=== PATIENT | male | born 1945 | race Caucasian/White ===

== ENCOUNTER 2018-07-14 13:21 | Outpatient (CLI) | payer MEDICARE, OTHER, SELFPAY ==
[2018-07-14 13:55] LABS: Abs Immature Grans 0.02 k/cumm (0.0-0.09); Absolute Basophil Count 0.02 k/cumm (0.0-0.2); Absolute Lymphocyte Count 2.05 k/cumm (1.2-3.4); Absolute Monocyte Count 0.75 k/cumm (0.11-0.7); Absolute Neutrophil Count 3.93 k/cumm (1.2-6.7); Basophils % 0.3; Eosinophils % 1.5; HCT 42.1 % (40.0-50.0); HGB 14.2 g/dL (13.5-17.5); Immature Grans % 0.3; Lymphocytes % 29.8; Mean Corp. HGB Concentration 33.7 g/dL (32.0-36.0); Mean Corpuscular Hemoglobin 32.1 pg (27.0-33.0); Mean Platelet Volume 9.7 fL (8.0-11.0); Monocytes % 10.9; Neutrophils % 57.2; Platelet Count 136 x1000/uL (130-400); RBC 4.43 m/cumm (4.50-6.00); RBC Distribution Width 14.6 % (11.8-14.1); White Blood Cell Count 6.87 k/cumm (4.4-10.8)
[2018-07-14 14:07] LABS: ALT 20 U/L (12-78); AST 18 U/L (15-37); Albumin 3.9 g/dL (3.4-5.0); Alkaline Phosphatase 118 U/L (46-116); Anion Gap 7.4 mmol/L (3-11); BUN 10 mg/dL (7-18); Bilirubin, Total 0.7 mg/dL (0.2-1.0); CO2 28.6 mmol/L (21.0-32.0); CREATININE 1.05 mg/dL (0.70-1.30); Calcium 8.8 mg/dL (8.5-10.1); Chloride 103 mmol/L (98-107); Glucose 108 mg/dL (70-100); Potassium 3.8 mmol/L (3.5-5.1); Sodium 139 mmol/L (136-145); Total Protein 7.9 g/dL (6.4-8.2)
== END 2018-07-14 13:41 ==
PROVIDERS: PCP Family Medicine; Visit Provider Nurse Practitioner Adult Health
DX: C09.9 Malignant neoplasm of tonsil, unspecified (principal)
CPT/HCPCS: 36415; 80053; 85025

== ENCOUNTER 2018-07-22 01:20 | Outpatient (CLI) | payer MEDICARE, OTHER, SELFPAY ==
[2018-07-22 10:59] LABS: Absolute Basophil Count 0.01 k/cumm (0.0-0.2); Absolute Eosinophil Count 0.08 k/cumm (0.0-0.7); Absolute Lymphocyte Count 1.29 k/cumm (1.2-3.4); Absolute Monocyte Count 0.37 k/cumm (0.11-0.7); Absolute Neutrophil Count 3.56 k/cumm (1.2-6.7); Basophils % 0.2; Eosinophils % 1.5; HCT 40.9 % (40.0-50.0); HGB 13.8 g/dL (13.5-17.5); Lymphocytes % 24.3; Mean Corp. HGB Concentration 33.7 g/dL (32.0-36.0); Mean Corpuscular Hemoglobin 31.9 pg (27.0-33.0); Mean Corpuscular Volume 94.7 fL (80-95); Mean Platelet Volume 9.9 fL (8.0-11.0); Platelet Count 109 x1000/uL (130-400); RBC 4.32 m/cumm (4.50-6.00); RBC Distribution Width 14.1 % (11.8-14.1); White Blood Cell Count 5.31 k/cumm (4.4-10.8)
[2018-07-22 11:12] LABS: ALT 31 U/L (12-78); AST 29 U/L (15-37); Albumin 3.8 g/dL (3.4-5.0); Alkaline Phosphatase 86 U/L (46-116); Anion Gap 4.9 mmol/L (3-11); BUN 14 mg/dL (7-18); Bilirubin, Total 1.4 mg/dL (0.2-1.0); CO2 31.1 mmol/L (21.0-32.0); CREATININE 0.91 mg/dL (0.70-1.30); Calcium 8.7 mg/dL (8.5-10.1); Chloride 101 mmol/L (98-107); Glucose 120 mg/dL (70-100); Potassium 4.1 mmol/L (3.5-5.1); Sodium 137 mmol/L (136-145); Total Protein 7.9 g/dL (6.4-8.2)
[2018-07-22 17:28] LABS: Bilirubin, Direct 0.37 mg/dL (0.00-0.20)
== END 2018-07-22 01:40 ==
PROVIDERS: PCP Family Medicine; Visit Provider Nurse Practitioner Adult Health
DX: C09.9 Malignant neoplasm of tonsil, unspecified (principal)
CPT/HCPCS: 36415; 80053; 80076; 85025

== ENCOUNTER 2018-07-25 07:31 | Outpatient (CLI) | payer MEDICARE, OTHER, SELFPAY ==
[2018-07-25 07:59] LABS: Abs Immature Grans 0.03 k/cumm (0.0-0.09); Absolute Basophil Count 0.02 k/cumm (0.0-0.2); Absolute Eosinophil Count 0.07 k/cumm (0.0-0.7); Absolute Lymphocyte Count 0.96 k/cumm (1.2-3.4); Absolute Monocyte Count 0.31 k/cumm (0.11-0.7); Absolute Neutrophil Count 2.89 k/cumm (1.2-6.7); Basophils % 0.5; Eosinophils % 1.6; HCT 37.7 % (40.0-50.0); Immature Grans % 0.7; Lymphocytes % 22.4; Mean Corp. HGB Concentration 34.5 g/dL (32.0-36.0); Mean Corpuscular Hemoglobin 32.5 pg (27.0-33.0); Mean Corpuscular Volume 94.3 fL (80-95); Mean Platelet Volume 10.4 fL (8.0-11.0); Monocytes % 7.2; Neutrophils % 67.6; Platelet Count 111 x1000/uL (130-400); RBC Distribution Width 14.1 % (11.8-14.1); White Blood Cell Count 4.28 k/cumm (4.4-10.8)
[2018-07-25 08:06] LABS: ALT 30 U/L (12-78); AST 24 U/L (15-37); Albumin 3.7 g/dL (3.4-5.0); Alkaline Phosphatase 85 U/L (46-116); Anion Gap 10.7 mmol/L (3-11); BUN 17 mg/dL (7-18); Bilirubin, Total 1.1 mg/dL (0.2-1.0); CO2 27.3 mmol/L (21.0-32.0); CREATININE 0.97 mg/dL (0.70-1.30); Calcium 8.7 mg/dL (8.5-10.1); Chloride 101 mmol/L (98-107); Glucose 161 mg/dL (70-100); Sodium 139 mmol/L (136-145); Total Protein 7.7 g/dL (6.4-8.2)
[2018-07-25 08:59] LABS: Bilirubin, Direct 0.32 mg/dL (0.00-0.20)
== END 2018-07-25 07:51 ==
PROVIDERS: PCP Family Medicine; Visit Provider Nurse Practitioner Adult Health
DX: C09.9 Malignant neoplasm of tonsil, unspecified (principal)
CPT/HCPCS: 36415; 80053; 80076; 85025

== ENCOUNTER 2018-07-28 02:46 | Outpatient (CLI) | payer MEDICARE, OTHER, SELFPAY ==
[2018-07-28 12:35] LABS: ALT 35 U/L (12-78); AST 23 U/L (15-37); Albumin 3.8 g/dL (3.4-5.0); Alkaline Phosphatase 82 U/L (46-116); Anion Gap 6.7 mmol/L (3-11); BUN 16 mg/dL (7-18); Bilirubin, Direct 0.33 mg/dL (0.00-0.20); Bilirubin, Total 1.3 mg/dL (0.2-1.0); CO2 29.3 mmol/L (21.0-32.0); CREATININE 0.85 mg/dL (0.70-1.30); Calcium 8.9 mg/dL (8.5-10.1); Chloride 102 mmol/L (98-107); Glucose 90 mg/dL (70-100); Potassium 4.2 mmol/L (3.5-5.1); Sodium 138 mmol/L (136-145); Total Protein 7.8 g/dL (6.4-8.2)
[2018-07-28 12:39] LABS: Abs Immature Grans 0.01 k/cumm (0.0-0.09); Absolute Basophil Count 0.01 k/cumm (0.0-0.2); Absolute Eosinophil Count 0.04 k/cumm (0.0-0.7); Absolute Lymphocyte Count 1.01 k/cumm (1.2-3.4); Absolute Monocyte Count 0.26 k/cumm (0.11-0.7); Absolute Neutrophil Count 2.69 k/cumm (1.2-6.7); Basophils % 0.2; HCT 36.6 % (40.0-50.0); HGB 12.5 g/dL (13.5-17.5); Immature Grans % 0.2; Lymphocytes % 25.1; Mean Corp. HGB Concentration 34.2 g/dL (32.0-36.0); Mean Corpuscular Hemoglobin 32.1 pg (27.0-33.0); Mean Corpuscular Volume 93.8 fL (80-95); Mean Platelet Volume 10.7 fL (8.0-11.0); Monocytes % 6.5; Platelet Count 131 x1000/uL (130-400); RBC Distribution Width 14.2 % (11.8-14.1); White Blood Cell Count 4.02 k/cumm (4.4-10.8)
== END 2018-07-28 03:06 ==
PROVIDERS: PCP Family Medicine; Visit Provider Nurse Practitioner Adult Health
DX: C09.9 Malignant neoplasm of tonsil, unspecified (principal)
CPT/HCPCS: 36415; 80053; 80076; 85025

== ENCOUNTER 2018-08-01 02:13 | Outpatient (CLI) | payer MEDICARE, OTHER, SELFPAY ==
[2018-08-01 08:18] LABS: Abs Immature Grans 0.01 k/cumm (0.0-0.09); Absolute Basophil Count 0.01 k/cumm (0.0-0.2); Absolute Eosinophil Count 0.05 k/cumm (0.0-0.7); Absolute Lymphocyte Count 0.89 k/cumm (1.2-3.4); Absolute Monocyte Count 0.26 k/cumm (0.11-0.7); Absolute Neutrophil Count 2.12 k/cumm (1.2-6.7); Basophils % 0.3; Eosinophils % 1.5; HCT 34.4 % (40.0-50.0); HGB 11.7 g/dL (13.5-17.5); Immature Grans % 0.3; Lymphocytes % 26.6; Mean Corpuscular Hemoglobin 31.8 pg (27.0-33.0); Mean Corpuscular Volume 93.5 fL (80-95); Mean Platelet Volume 9.7 fL (8.0-11.0); Monocytes % 7.8; Neutrophils % 63.5; Platelet Count 118 x1000/uL (130-400); RBC 3.68 m/cumm (4.50-6.00); RBC Distribution Width 14.7 % (11.8-14.1); White Blood Cell Count 3.34 k/cumm (4.4-10.8)
[2018-08-01 08:30] LABS: ALT 28 U/L (12-78); AST 18 U/L (15-37); Albumin 3.6 g/dL (3.4-5.0); Alkaline Phosphatase 76 U/L (46-116); Anion Gap 9.9 mmol/L (3-11); BUN 13 mg/dL (7-18); Bilirubin, Total 1.2 mg/dL (0.2-1.0); CO2 27.1 mmol/L (21.0-32.0); CREATININE 1.05 mg/dL (0.70-1.30); Calcium 8.9 mg/dL (8.5-10.1); Chloride 102 mmol/L (98-107); Glucose 172 mg/dL (70-100); Sodium 139 mmol/L (136-145); Total Protein 7.5 g/dL (6.4-8.2)
== END 2018-08-01 02:33 ==
PROVIDERS: PCP Family Medicine; Visit Provider Nurse Practitioner Adult Health
DX: C09.9 Malignant neoplasm of tonsil, unspecified (principal)
CPT/HCPCS: 36415; 80053; 85025

== ENCOUNTER 2018-08-08 01:54 | Outpatient (CLI) | payer MEDICARE, OTHER, SELFPAY ==
[2018-08-08 10:21] LABS: Abs Immature Grans 0.01 k/cumm (0.0-0.09); Absolute Basophil Count 0.02 k/cumm (0.0-0.2); Absolute Eosinophil Count 0.03 k/cumm (0.0-0.7); Absolute Lymphocyte Count 0.58 k/cumm (1.2-3.4); Absolute Monocyte Count 0.46 k/cumm (0.11-0.7); Absolute Neutrophil Count 2.49 k/cumm (1.2-6.7); Basophils % 0.6; Eosinophils % 0.8; HCT 32.4 % (40.0-50.0); Immature Grans % 0.3; Lymphocytes % 16.2; Mean Corpuscular Hemoglobin 31.6 pg (27.0-33.0); Mean Corpuscular Volume 93.1 fL (80-95); Mean Platelet Volume 9.5 fL (8.0-11.0); Monocytes % 12.8; Neutrophils % 69.3; Platelet Count 132 x1000/uL (130-400); RBC 3.48 m/cumm (4.50-6.00); RBC Distribution Width 15.4 % (11.8-14.1); White Blood Cell Count 3.59 k/cumm (4.4-10.8)
[2018-08-08 10:38] LABS: ALT 26 U/L (12-78); AST 16 U/L (15-37); Albumin 3.7 g/dL (3.4-5.0); Alkaline Phosphatase 72 U/L (46-116); Anion Gap 5.7 mmol/L (3-11); BUN 16 mg/dL (7-18); Bilirubin, Total 1.1 mg/dL (0.2-1.0); CO2 30.3 mmol/L (21.0-32.0); CREATININE 0.89 mg/dL (0.70-1.30); Calcium 8.8 mg/dL (8.5-10.1); Chloride 102 mmol/L (98-107); Glucose 140 mg/dL (70-100); Potassium 3.7 mmol/L (3.5-5.1); Sodium 138 mmol/L (136-145); Total Protein 7.5 g/dL (6.4-8.2)
== END 2018-08-08 02:14 ==
PROVIDERS: PCP Family Medicine; Visit Provider Nurse Practitioner Adult Health
DX: C09.9 Malignant neoplasm of tonsil, unspecified (principal); I10 Essential (primary) hypertension; G61.81 Chronic inflammatory demyelinating polyneuritis
CPT/HCPCS: 36415; 80053; 80076; 85025

== ENCOUNTER 2018-08-09 01:02 | Outpatient (CLI) | payer MEDICARE, OTHER, SELFPAY ==
--- NOTE | 2018-08-09 09:07 | DI.US_ITS ---
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 No priors. The proximal aorta was not well visualized due to overlying bowel. The mid and distal aorta are of normal caliber. The inferior vena cava is unremarkable. The liver is normal in size. No discrete hepatic mass is seen. The gallbladder is contracted. There are however multiple stones seen within the gallbladder. There is a negative sonographic Quesada's sign. No pericholecystic fluid is seen. The common duct is within normal limits at .6 cm. The pancreas is grossly unremarkable. The spleen measures 15 cm. in size. There are tiny echogenic foci seen within the spleen suggesting prior granulomatous disease. The kidneys are unremarkable. No free fluid is seen in the upper abdomen. IMPRESSION: 1. No evidence of a hepatic mass. 2. Cholelithiasis. No evidence of biliary ductal dilatation. 3. Mild splenomegaly.
== END 2018-08-09 01:22 ==
PROVIDERS: PCP Family Medicine; Visit Provider Nurse Practitioner Adult Health
DX: G61.81 Chronic inflammatory demyelinating polyneuritis (principal); C09.9 Malignant neoplasm of tonsil, unspecified; K80.20 Calculus of gallbladder without cholecystitis without obstruction; R16.1 Splenomegaly, not elsewhere classified
CPT/HCPCS: 76700

== ENCOUNTER 2018-08-15 01:12 | Outpatient (CLI) | payer MEDICARE, OTHER, SELFPAY ==
[2018-08-15 09:59] LABS: Abs Immature Grans 0.01 k/cumm (0.0-0.09); Absolute Basophil Count 0.01 k/cumm (0.0-0.2); Absolute Eosinophil Count 0.03 k/cumm (0.0-0.7); Absolute Lymphocyte Count 0.42 k/cumm (1.2-3.4); Absolute Monocyte Count 0.53 k/cumm (0.11-0.7); Absolute Neutrophil Count 2.91 k/cumm (1.2-6.7); Basophils % 0.3; Eosinophils % 0.8; HCT 25.6 % (40.0-50.0); HGB 8.7 g/dL (13.5-17.5); Immature Grans % 0.3; Lymphocytes % 10.7; Mean Corpuscular Hemoglobin 31.5 pg (27.0-33.0); Mean Corpuscular Volume 92.8 fL (80-95); Mean Platelet Volume 9.5 fL (8.0-11.0); Monocytes % 13.6; Neutrophils % 74.3; RBC 2.76 m/cumm (4.50-6.00); RBC Distribution Width 16.1 % (11.8-14.1); White Blood Cell Count 3.91 k/cumm (4.4-10.8)
[2018-08-15 10:14] LABS: ALT 21 U/L (12-78); AST 15 U/L (15-37); Albumin 3.5 g/dL (3.4-5.0); Alkaline Phosphatase 77 U/L (46-116); Anion Gap 8.2 mmol/L (3-11); BUN 20 mg/dL (7-18); Bilirubin, Total 2.1 mg/dL (0.2-1.0); CO2 27.8 mmol/L (21.0-32.0); CREATININE 0.89 mg/dL (0.70-1.30); Calcium 8.8 mg/dL (8.5-10.1); Chloride 101 mmol/L (98-107); Glucose 126 mg/dL (70-100); Sodium 137 mmol/L (136-145); Total Protein 7.3 g/dL (6.4-8.2)
[2018-08-15 10:16] LABS: Diff Comment Diff Reviewed; Platelet Count 76 x1000/uL (130-400); Polychromasia Present
== END 2018-08-15 01:32 ==
PROVIDERS: PCP Family Medicine; Visit Provider Family Medicine
DX: C09.9 Malignant neoplasm of tonsil, unspecified (principal)
CPT/HCPCS: 36415; 80053; 85025

== ENCOUNTER 2018-08-22 05:47 | Outpatient (CLI) | payer MEDICARE, OTHER, SELFPAY ==
[2018-08-22 10:41] LABS: Abs Immature Grans 0.04 k/cumm (0.0-0.09); Absolute Basophil Count 0.01 k/cumm (0.0-0.2); Absolute Lymphocyte Count 0.34 k/cumm (1.2-3.4); Absolute Monocyte Count 0.45 k/cumm (0.11-0.7); Absolute Neutrophil Count 6.87 k/cumm (1.2-6.7); Basophils % 0.1; Eosinophils % 1.3; HGB 8.4 g/dL (13.5-17.5); Immature Grans % 0.5; Lymphocytes % 4.4; Mean Corp. HGB Concentration 32.3 g/dL (32.0-36.0); Mean Corpuscular Hemoglobin 31.3 pg (27.0-33.0); Monocytes % 5.8; Neutrophils % 87.9; RBC 2.68 m/cumm (4.50-6.00); RBC Distribution Width 17.5 % (11.8-14.1); White Blood Cell Count 7.81 k/cumm (4.4-10.8)
[2018-08-22 10:58] LABS: ALT 29 U/L (12-78); AST 22 U/L (15-37); Albumin 2.5 g/dL (3.4-5.0); Alkaline Phosphatase 99 U/L (46-116); BUN 37 mg/dL (7-18); Bilirubin, Total 3.8 mg/dL (0.2-1.0); CREATININE 1.38 mg/dL (0.70-1.30); Calcium 8.2 mg/dL (8.5-10.1); Chloride 105 mmol/L (98-107); Estimated GFR 50.65 (mL/min/1.73m2); Glucose 174 mg/dL (70-100); Potassium 3.4 mmol/L (3.5-5.1); Sodium 141 mmol/L (136-145); Total Protein 6.2 g/dL (6.4-8.2)
[2018-08-22 11:10] LABS: Anisocytosis 2+; Diff Comment RBC Morph Reviewed; Microcytosis 1+; Platelet Count 79 x1000/uL (130-400)
[2018-08-22 11:11] LABS: Poikilocytes 1+; Polychromasia Present
== END 2018-08-22 06:07 ==
PROVIDERS: Nurse Practitioner Adult Health; PCP Family Medicine; Visit Provider Nurse Practitioner Family
DX: C09.9 Malignant neoplasm of tonsil, unspecified (principal)
CPT/HCPCS: 36415; 80053; 85025

== ENCOUNTER 2018-08-22 11:57 | Emergency (ER) | payer MEDICARE, OTHER, SELFPAY ==
[2018-08-22] VITALS (78 sets, daily range): BP systolic 88–137; BP diastolic 40–76; PULSE 117–161; RESP 12–60; TEMP 36.6–36.8; O2SAT 84–100
[2018-08-22] MEDS: Normal Saline 1,000 ML 1000 ML IV (12:00)
--- NOTE | 2018-08-22 12:26 | DI.CT_ITS ---
SYMPTOMS/DIAGNOSIS: HYPOTENSION, TACHYCARDIA, SHORTNESS OF BREATH, TONSIL CANCER CHEST CT FOR PULMONARY EMBOLISM: CT angiography was performed with multi slice acquisition and multi planar and 3D reconstruction. The exam is limited by the patient's body habitus. The exam is also limited by respiratory motion. No pleural or pericardial effusions are seen. There are no prior comparison exams. There are sternal wires. There is no evidence of aortic aneurysm or dissection. Coronary artery calcifications are seen. No pulmonary emboli are identified. Small branch emboli would be difficult to exclude given the degree of motion. The lungs show mild fibrotic changes. No infiltrate, effusion or pulmonary edema is seen. No adenopathy or pulmonary nodules are identified. The thyroid is unremarkable. Multiple small bubbles of free air are noted beneath the diaphragm. A PEG tube is seen with the balloon in the stomach. The stomach is not abnormally distended. The visualized portions of the liver, spleen are unremarkable. No compression fracture, lytic or blastic bony lesion is identified. IMPRESSION: 1. Limited exam due to patient body habitus and respiratory motion. No pulmonary emboli are identified. 2. A small amount of free air is seen beneath the diaphragm, presumably secondary to recent PEG tube placement.
--- NOTE | 2018-08-22 12:28 | W.ED.GENAD ---
Discharge Plan Disposition Patient Disposition: PATRICK MITCHELL ([facility]) Condition: Critical Discharge Details Chief Complaint: GenMedical Clinical Impression: Tachycardia, Hyperbilirubinemia, Electrocardiogram showing no acute ischemic changes, Anemia, Thrombocytopenia Primary Care Provider: Chacorta Long ED Provider: Isauro Shelby Home Meds and New Rx's Prescriptions: No Action Eliquis 5 mg Tablet 5 mg PO BID RF: 0 ibuprofen 100 mg/5 mL Suspension 400 mg PO QID PRNRF: 0 metoprolol tartrate 25 mg Tablet 25 mg PO TID RF: 0 Nutren 1.5 0.07 gram-1.5 kcal/mL Liquid 250 ml Feeding Tube Q4H PRN PRNRF: 0 Medical Decision Making 12:35 --72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 Patient is afebrile. He is tachycardic and hypotensive on arrival in critical condition. IV access was immediately established and IV fluid bolus initiated. Plan for IV fluid resuscitation. ECG was reviewed and interpreted by me: Sinus tachycardia 138 bpm, T wave inversions with ST depression noted lead I, 2, V1 to V6. Decision to obtain outside hospital records. I obtained outside hospital primary care ECG from 11/30/2016 that is limited in view but does not appear to have significant T wave findings noted today. Consider ischemia. Plan to check troponin. Labs reviewed from this a.m. Patient noted to have a total bilirubin of 3.8, this is increasing from prior recent 1.1 last month. Patient also noted to have a hemoglobin of 8.4, this is decreasing from 14 last month. Patient is thrombocytopenic with platelets of 79 also decreasing from last month where he was greater than 100. Consider pulmonary embolism. Plan to obtain CT chest. Gtube intact and abdominal exam benign. -- Patient reassessed after initial IVF bolus, remains tachycardic. BP improved. Will give additional 1L IVF bolus. 14:00 -- BNP elevated at 8000. Patient in CT. 14:35 -- ecg 07/21 [place] [facility] [place] and reviewed: Sinus bradycardia 59 bpm, single T wave inversion noted in lead III, no significant ST depressions. Patient reassessed: remains tachycardic despite 2 L of crystalloid. BP stable. We will continue IV fluid at slower rate. I called and spoke with [facility] to request transfer. Awaiting call back. CT chest interpreted by radiology: IMPRESSION: 1. Limited exam due to patient body habitus and respiratory motion. No pulmonary emboli are identified. 2. A small amount of free air is seen beneath the diaphragm, presumably secondary to recent PEG tube placement. 15:30 -- I called [facility] to again request transfer. Awaiting call back. A repeat ecg was obtained - tachycardic 136 bpm, no clear p waves. continues to have st depressions. No clear pwaves. 15:45 -- Patient remains tachycardic 130s. BP now decreasing. Will give additional 500mL bolus. I consider SVT given questionable pwaves on second ecg. I attempted vagal maneuvers which did not slow HR. I am reluctant to give adenosine at this point. Suspect sinus and secondary to anemia vs other underlying process. -- Spoke with hospitalist at [facility]: I discussed ED presentation and course, cannot accept patient in transfer due to capacity. Recommends hemolysis workup and RUQ ultrasound. Also recommends additional IVF bolus. Ultrasound not available at [facility] at this time. Awaiting call back from heme/onc. -- Given delay at [facility] and lacking capacity I called [facility] to request transfer. -- 18:00 -- Patient reassessed he has received 4L, still tachycardic, SBP 126, no UOP as yet. -- 18:15 --I spoke with Dr. Clark critical care at [facility] -I reviewed ED presentation and course, she will accept transfer. Recommends covering with zosyn IV. Recommends not giving blood at this point. Recommends low dose levaphed if pressure does not hold. Checking air transport availability. -- [facility] now available and en route. I think this will be fastest transfer route and given instablity this is safest mode - spoke with patient who consents to transfer. HPI General Mode of arrival: ambulatory. Date/Time Provider Initiated Documentation: 08/22/18 12:00. Limitations to Documentation: no limitations. Information obtained by: patient. 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 Patient notes he feels lousy. Symptoms have worsened over the past week. No severe. He was seen at oncology appointment today and referred to the emergency department as he was noted to be tachycardic and hypotensive. Patient does believe he is dehydrated. He has not had much fluids orally or through his G-tube. He denies fever. He does have shortness of breath intermittently and dyspnea on exertion. He denies chest pain. No calf pain or leg swelling. No abdominal pain. No black stool or bloody stool. Related Data Home Medications Medication Instructions Recorded Confirmed apixaban [Eliquis] 5 mg PO BID 08/22/18 08/22/18 ibuprofen 400 mg PO QID PRN 08/22/18 08/22/18 metoprolol tartrate 25 mg PO TID 08/22/18 08/22/18 nutritional supplements [Nutren 250 ml FEEDING TUBE Q4H PRN PRN 08/22/18 08/22/18 1.5] General Stated Complaint: GenMedical CHEKO: 2 Review of Systems Review of Systems All systems reviewed & are unremarkable except as noted in HPI and below Cardiovascular Denies chest pain, Denies syncope, Reports dyspnea and Reports dyspnea on exertion Respiratory Reports dyspnea and Reports dyspnea on exertion Gastrointestinal Reports as per HPI Neurologic Denies syncope PFSH Medical History Tonsillar cancer (Acute) Social History Smoking/Tobacco Use Status: Never Alcohol Intake: never Drug use: Never Substance use type: does not use Do you feel safe at home: Yes Do you feel safe in your relationship?: Yes Exam Const General: cooperative [facility] Head: normocephalic Mouth: mucous membranes dry Eyes Conjunctivae: normal conjunctivae Sclera: scleral abnormality bilaterally (icteric) Neck Neck: trachea midline and supple Resp Auscultation: clear to auscultation bilaterally, no rales, no rhonchi and no wheezes Cardio Jugular venous pressure: no JVD Rate: regular rate and tachycardic Rhythm: regular rhythm Heart Sounds: no gallops, no murmurs and no rubs GI Inspection: other (gtube present) Palpation: soft, not firm, no guarding, no masses, not rigid and nontender Rectal Exam: heme negative stool and other (loose stool) Skin General skin exam: jaundice Neuro General: alert, awake, oriented x3 and tone normal Extrem General: no calf tenderness bilaterally and edema Laterality: bilateral (trace) Psych Appearance: grossly normal Mental Status: mental status grossly normal Course Vital Signs Temperature 36.6 C 08/22/18 12:15 Pulse 136 H 08/22/18 12:15 Respiratory Rate 16 08/22/18 12:15 Blood Pressure 93/52 L 08/22/18 12:15 Pulse Oximetry 99 08/22/18 12:15 Temperature 36.6 C 08/22/18 12:15 Temperature Source Skin 08/22/18 12:15 Pulse 136 H 08/22/18 12:15 Respiratory Rate 16 08/22/18 12:15 Blood Pressure 93/52 L 08/22/18 12:15 Blood Pressure Position Sitting 08/22/18 12:15 Pulse Oximetry 99 08/22/18 12:15 Oxygen Delivery Method Room Air 08/22/18 12:15 Oxygen Flow Rate 0 08/22/18 12:15 Critical Care Time Critical Care Time: Yes Total Critical Care Time: 120 Attestation: I spent greater than 120 minutes addressing this patient's immediate life threats.
--- NOTE | 2018-08-22 12:40 | ED.GENADUL_ITS ---
Discharge Plan Disposition Patient Disposition: PATRICK MITCHELL ([facility]) Condition: Critical Discharge Details Chief Complaint: GenMedical Clinical Impression: Tachycardia, Hyperbilirubinemia, Electrocardiogram showing no acute ischemic changes, Anemia, Thrombocytopenia Primary Care Provider: Chacorta Long ED Provider: Isauro Shelby Home Meds and New Rx's Prescriptions: No Action Eliquis 5 mg Tablet 5 mg PO BID RF: 0 ibuprofen 100 mg/5 mL Suspension 400 mg PO QID PRNRF: 0 metoprolol tartrate 25 mg Tablet 25 mg PO TID RF: 0 Nutren 1.5 0.07 gram-1.5 kcal/mL Liquid 250 ml Feeding Tube Q4H PRN PRNRF: 0 Medical Decision Making 12:35 --72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 Patient is afebrile. He is tachycardic and hypotensive on arrival in critical condition. IV access was immediately established and IV fluid bolus initiated. Plan for IV fluid resuscitation. ECG was reviewed and interpreted by me: Sinus tachycardia 138 bpm, T wave inversions with ST depression noted lead I, 2, V1 to V6. Decision to obtain outside hospital records. I obtained outside hospital primary care ECG from 11/30/2016 that is limited in view but does not appear to have significant T wave findings noted today. Consider ischemia. Plan to check troponin. Labs reviewed from this a.m. Patient noted to have a total bilirubin of 3.8, this is increasing from prior recent 1.1 last month. Patient also noted to have a hemoglobin of 8.4, this is decreasing from 14 last month. Patient is thromb ocytopenic with platelets of 79 also decreasing from last month where he was greater than 100. Consider pulmonary embolism. Plan to obtain CT chest. Gtube intact and abdominal exam benign. -- Patient reassessed after initial IVF bolus, remains tachycardic. BP improved. Will give additional 1L IVF bolus. 14:00 -- BNP elevated at 8000. Patient in CT. 14:35 -- [place] [facility] [place] reviewed: Sinus bradycardia 59 bpm, single T wave inversion noted in lead III, no significant ST depressions. Patient reassessed: remains tachycardic despite 2 L of crystalloid. BP stable. We will continue IV fluid at slower rate. I called and spoke with [facility] [place]. Awaiting call back. CT chest interpreted by radiology: IMPRESSION: 1. Limited exam due to patient body habitus and respiratory motion. No pulmonary emboli are identified. 2. A small amount of free air is seen beneath the diaphragm, presumably secondary to recent PEG tube placement. 15:30 -- I called [facility] [place] again request transfer. Awaiting call back. A repeat ecg was obtained - tachycardic 136 bpm, no clear p waves. continues to have st depressions. No clear pwaves. 15:45 -- Patient remains tachycardic 130s. BP now decreasing. Will give additional 500mL bolus. I consider SVT given questionable pwaves on second ecg. I attempted vagal maneuvers which did not slow HR. I am reluctant to give adenosine at this point. Suspect sinus and secondary to anemia vs other underlying process. -- Spoke with hospitalist at [facility]: I discussed ED presentation and course, cannot accept patient in transfer due to capacity. Recommends hemolysis workup and RUQ ultrasound. Also recommends additional IVF bolus. Ultrasound not available at [facility] at this time. Awaiting call back from heme/onc. -- Given delay at [facility] and lacking capacity I called [facility] to request transfer. -- 18:00 -- Patient reassessed he has received 4L, still tachycardic, SBP 126, no UOP as yet. -- 18:15 --I spoke with Dr. Clark critical care at [facility] -I reviewed ED presentation and course, she will accept transfer. Recommends covering with zosyn IV. Recommends not giving blood at this point. Recommends low dose levaphed if pressure does not hold. Checking air transport availability. -- [facility] now available and en route. I think this will be fastest transfer route and given instablity this is safest mode - spoke with patient who consents to transfer. HPI General Mode of arrival: ambulatory . Date/Time Provider Initiated Documentation: 08/22/18 12:00 . Limitations to Documentation: no limitations . Information obtained by: patient . 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 Patient notes he feels lousy. Symptoms have worsened over the past week. No severe. He was seen at oncology appointment today and referred to the emergency department as he was noted to be tachycardic and hypotensive. Patient does believe he is dehydrated. He has not had much fluids orally or through his G-tube. He denies fever. He does have shortness of breath intermittently and dyspnea on exertion. He denies chest pain. No calf pain or leg swelling. No abdominal pain. No black stool or bloody stool. Related Data Home Medications Medication Instructions Recorded Confirmed apixaban [Eliquis] 5 mg PO BID 08/22/18 08/22/18 ibuprofen 400 mg PO QID PRN 08/22/18 08/22/18 metoprolol tartrate 25 mg PO TID 08/22/18 08/22/18 nutritional supplements [Nutren 250 ml FEEDING TUBE Q4H PRN PRN 08/22/18 08/22/18 1.5] General Stated Complaint: GenMedical CHEKO: 2 Review of Systems Review of Systems All systems reviewed & are unremarkable except as noted in HPI and below Cardiovascular Denies chest pain, Denies syncope, Reports dyspnea and Reports dyspnea on exertion Respiratory Reports dyspnea and Reports dyspnea on exertion Gastrointestinal Reports as per HPI Neurologic Denies syncope [facility] Medical History Tonsillar cancer (Acute) Social History Smoking/Tobacco Use Status: Never Alcohol Intake: never Drug use: Never Substance use type: does not use Do you feel safe at home: Yes Do you feel safe in your relationship?: Yes Exam Const General: cooperative [facility] Head: normocephalic Mouth: mucous membranes dry Eyes Conjunctivae: normal conjunctivae Sclera: scleral abnormality bilaterally (icteric) Neck Neck: trachea midline and supple Resp Auscultation: clear to auscultation bilaterally, no rales, no rhonchi and no wheezes Cardio Jugular venous pressure: no JVD Rate: regular rate and tachycardic Rhythm: regular rhythm Heart Sounds: no gallops, no murmurs and no rubs GI Inspection: other (gtube present) Palpation: soft, not firm, no guarding, no masses, not rigid and nontender Rectal Exam: heme negative stool and other (loose stool) Skin General skin exam: jaundice Neuro General: alert, awake, oriented x3 and tone normal Extrem General: no calf tenderness bilaterally and edema Laterality: bilateral (trace) Psych Appearance: grossly normal Mental Status: mental status grossly normal Course Vital Signs Temperature 36.6 C 08/22/18 12:15 Pulse 136 H 08/22/18 12:15 Respiratory Rate 16 08/22/18 12:15 Blood Pressure 93/52 L 08/22/18 12:15 Pulse Oximetry 99 08/22/18 12:15 Temperature 36.6 C 08/22/18 12:15 Temperature Source Skin 08/22/18 12:15 Pulse 136 H 08/22/18 12:15 Respiratory Rate 16 08/22/18 12:15 Blood Pressure 93/52 L 08/22/18 12:15 Blood Pressure Position Sitting 08/22/18 12:15 Pulse Oximetry 99 08/22/18 12:15 Oxygen Delivery Method Room Air 08/22/18 12:15 Oxygen Flow Rate 0 08/22/18 12:15 Critical Care Time Critical Care Time: Yes Total Critical Care Time: 120 Attestation: I spent greater than 120 minutes addressing this patient's immediate life threats.
[2018-08-22 13:08] LABS: Troponin I < 0.02 ng/mL (0.00-0.06)
[2018-08-22 13:52] LABS: NT-proBNP 8853 pg/mL
[2018-08-22] MEDS: Omnipaque 350 MG/ML 100 ML BTL IV (14:16)
[2018-08-22] MEDS: Lactated Ringers 1,000 ML 125 ML IV (14:47)
[2018-08-22 16:34] LABS: Troponin I < 0.02 ng/mL (0.00-0.06)
[2018-08-22] MEDS: Lactated Ringers 1,000 ML 1000 ML IV (17:00)
[2018-08-22 17:34] LABS: LDH 195 U/L (85-227)
[2018-08-22] MEDS: PIPERACILLIN/TAZO 4.5 GM in Normal Saline 100 ML IVPB (18:48)
== END 2018-08-22 20:00 | disposition short-term general hospital (02) ==
PROVIDERS: Emergency Provider Student in an Organized Health Care Education/Training Program; PCP Family Medicine
DX: R00.0 Tachycardia, unspecified (principal); I95.9 Hypotension, unspecified; E80.6 Other disorders of bilirubin metabolism; R94.31 Abnormal electrocardiogram [ECG] [EKG]; C09.9 Malignant neoplasm of tonsil, unspecified; D69.6 Thrombocytopenia, unspecified; D64.9 Anemia, unspecified; R53.1 Weakness; R53.81 Other malaise; Z79.899 Other long term (current) drug therapy; Z93.1 Gastrostomy status
CPT/HCPCS: 36415; 71275; 80053; 85027; 86850; 86900; 86901; 93005; 96361; 96365; 99291; 99292; 83605; 83615; 83880; 84484; 85025; 85610; 85730; 93010; J2543; J3490

== ENCOUNTER 2018-09-23 11:35 | Outpatient (REF) | payer MEDICARE, OTHER, SELFPAY ==
[2018-09-23 13:13] LABS: HCT 27.3 % (40.0-50.0); HGB 8.4 g/dL (13.5-17.5); Mean Corp. HGB Concentration 30.8 g/dL (32.0-36.0); Mean Corpuscular Hemoglobin 29.6 pg (27.0-33.0); Mean Corpuscular Volume 96.1 fL (80-95); Mean Platelet Volume 10.2 fL (8.0-11.0); Platelet Count 240 x1000/uL (130-400); RBC 2.84 m/cumm (4.50-6.00); RBC Distribution Width 18.8 % (11.8-14.1); White Blood Cell Count 4.83 k/cumm (4.4-10.8)
[2018-09-23 13:19] LABS: Anion Gap 7.3 mmol/L (3-11); BUN 20 mg/dL (7-18); CO2 31.7 mmol/L (21.0-32.0); CREATININE 1.01 mg/dL (0.70-1.30); Chloride 99 mmol/L (98-107); Glucose 135 mg/dL (70-100); Potassium 3.9 mmol/L (3.5-5.1); Sodium 138 mmol/L (136-145)
[2018-09-23 13:58] LABS: Absolute Lymphocyte Count 1.21 k/cumm (1.2-3.4); Absolute Monocyte Count 0.48 k/cumm (0.11-0.7); Absolute Neutrophil Count 2.75 k/cumm (1.2-6.7)
[2018-09-23 13:59] LABS: Anisocytosis 1+; Diff Comment Manual Differential; Other Cells 1; Polychromasia Present
== END 2018-09-23 11:55 ==
LOC: LBN 11:35
PROVIDERS: PCP Family Medicine; Visit Provider Nurse Practitioner Adult Health
DX: E86.0 Dehydration (principal); I48.91 Unspecified atrial fibrillation; D64.9 Anemia, unspecified
CPT/HCPCS: 80048; 85025

== ENCOUNTER 2018-09-24 18:27 | Outpatient (REF) | payer MEDICARE, OTHER, SELFPAY | END 2018-09-24 18:47 | LOC: LBN 18:27 | PROVIDERS: PCP Family Medicine; Visit Provider Family Medicine | DX: D64.9 Anemia, unspecified (principal) | CPT/HCPCS: 82272 ==

== ENCOUNTER 2018-09-25 14:24 | Outpatient (REF) | payer MEDICARE, OTHER, SELFPAY | END 2018-09-25 14:44 | LOC: LBN 14:24 | PROVIDERS: PCP Family Medicine; Visit Provider Nurse Practitioner Adult Health | DX: D64.9 Anemia, unspecified (principal) | CPT/HCPCS: 82272 ==

== ENCOUNTER 2018-09-26 11:28 | Outpatient (REF) | payer MEDICARE, OTHER, SELFPAY | END 2018-09-26 11:48 | LOC: LBN 11:28 | PROVIDERS: PCP Family Medicine; Visit Provider Nurse Practitioner Adult Health | DX: D64.9 Anemia, unspecified (principal) | CPT/HCPCS: 82272 ==

== ENCOUNTER 2018-10-01 16:55 | Outpatient (REF) | payer MEDICARE, OTHER, SELFPAY ==
[2018-10-03 20:11] LABS: Specimen Description Feces
[2018-10-04 08:12] LABS: Result Positive
== END 2018-10-01 17:15 ==
LOC: LBN 16:55
PROVIDERS: PCP Family Medicine; Visit Provider Family Medicine
DX: R19.7 Diarrhea, unspecified (principal)
CPT/HCPCS: 87324; 87798

== ENCOUNTER 2018-10-11 10:13 | Outpatient (CLI) | payer MEDICARE, OTHER, SELFPAY ==
[2018-10-11 12:12] LABS: Anion Gap 11.1 mmol/L (3-11); BUN 32 mg/dL (7-18); CO2 23.9 mmol/L (21.0-32.0); CREATININE 2.12 mg/dL (0.70-1.30); Chloride 100 mmol/L (98-107); Estimated GFR 30.86 (mL/min/1.73m2); Glucose 131 mg/dL (70-100); Potassium 3.6 mmol/L (3.5-5.1); Sodium 135 mmol/L (136-145)
[2018-10-11 12:15] LABS: Abs Immature Grans 0.07 k/cumm (0.0-0.09); Absolute Basophil Count 0.02 k/cumm (0.0-0.2); Absolute Eosinophil Count 0.07 k/cumm (0.0-0.7); Absolute Lymphocyte Count 1.37 k/cumm (1.2-3.4); Absolute Monocyte Count 0.53 k/cumm (0.11-0.7); Absolute Neutrophil Count 3.65 k/cumm (1.2-6.7); Basophils % 0.4; Eosinophils % 1.2; HCT 28.6 % (40.0-50.0); HGB 9.4 g/dL (13.5-17.5); Immature Grans % 1.2; Mean Corp. HGB Concentration 32.9 g/dL (32.0-36.0); Mean Corpuscular Hemoglobin 30.4 pg (27.0-33.0); Mean Corpuscular Volume 92.6 fL (80-95); Mean Platelet Volume 9.7 fL (8.0-11.0); Monocytes % 9.3; Neutrophils % 63.9; Platelet Count 159 x1000/uL (130-400); RBC 3.09 m/cumm (4.50-6.00); White Blood Cell Count 5.71 k/cumm (4.4-10.8)
== END 2018-10-11 10:33 ==
PROVIDERS: PCP Family Medicine; Visit Provider Nurse Practitioner Adult Health
DX: D64.9 Anemia, unspecified (principal)
CPT/HCPCS: 36415; 80048; 85025

== ENCOUNTER 2018-10-12 09:58 | Outpatient (REF) | payer MEDICARE, OTHER, SELFPAY | END 2018-10-12 10:18 | LOC: LBN 09:58 | PROVIDERS: PCP Family Medicine; Visit Provider Nurse Practitioner Adult Health | DX: D64.9 Anemia, unspecified (principal); K92.1 Melena | CPT/HCPCS: 82272 ==

== ENCOUNTER 2018-10-13 12:22 | Outpatient (REF) | payer MEDICARE, OTHER, SELFPAY ==
[2018-10-13 13:16] LABS: Abs Immature Grans 0.07 k/cumm (0.0-0.09); Absolute Basophil Count 0.01 k/cumm (0.0-0.2); Absolute Eosinophil Count 0.05 k/cumm (0.0-0.7); Absolute Lymphocyte Count 1.09 k/cumm (1.2-3.4); Absolute Monocyte Count 0.45 k/cumm (0.11-0.7); Absolute Neutrophil Count 3.34 k/cumm (1.2-6.7); Basophils % 0.2; HCT 26.8 % (40.0-50.0); HGB 8.5 g/dL (13.5-17.5); Immature Grans % 1.4; Lymphocytes % 21.8; Mean Corp. HGB Concentration 31.7 g/dL (32.0-36.0); Mean Corpuscular Hemoglobin 29.6 pg (27.0-33.0); Mean Corpuscular Volume 93.4 fL (80-95); Mean Platelet Volume 9.9 fL (8.0-11.0); Neutrophils % 66.6; Platelet Count 140 x1000/uL (130-400); RBC 2.87 m/cumm (4.50-6.00); RBC Distribution Width 17.9 % (11.8-14.1); White Blood Cell Count 5.01 k/cumm (4.4-10.8)
[2018-10-13 13:57] LABS: Anion Gap 11.3 mmol/L (3-11); BUN 29 mg/dL (7-18); CO2 20.7 mmol/L (21.0-32.0); CREATININE 1.68 mg/dL (0.70-1.30); Calcium 8.6 mg/dL (8.5-10.1); Chloride 104 mmol/L (98-107); Estimated GFR 40.36 (mL/min/1.73m2); Glucose 135 mg/dL (70-100); Potassium 3.7 mmol/L (3.5-5.1); Sodium 136 mmol/L (136-145)
== END 2018-10-13 12:42 ==
LOC: LBN 12:22
PROVIDERS: PCP Family Medicine; Visit Provider Nurse Practitioner Adult Health
DX: N18.9 Chronic kidney disease, unspecified (principal); I48.91 Unspecified atrial fibrillation; D64.9 Anemia, unspecified; E11.9 Type 2 diabetes mellitus without complications
CPT/HCPCS: 80048; 85025

== ENCOUNTER 2018-10-14 01:26 | Outpatient (CLI) | payer MEDICARE, OTHER, SELFPAY ==
[2018-10-14 10:21] LABS: CREATININE 1.58 mg/dL (0.70-1.30); Estimated GFR 43.33 (mL/min/1.73m2)
[2018-10-14] MEDS: Omnipaque 350 MG/ML 100 ML BTL 70 ML IJ (11:38)
--- NOTE | 2018-10-14 11:40 | DI.CT_ITS ---
SYMPTOM/DIAGNOSIS: TONSILLAR CA, ABORTED TREATMENT DUE TO COMPLICATIONS, RESTAGING EXAM NECK/CHEST/ABDOMEN AND PELVIC CT: Comparison is made with examination from 06/02/18 and examination from 08/22/18. ABDOMEN AND PELVIS: The liver is normal in size. No evidence of a hepatic mass is seen. There are stones seen within the gallbladder. No biliary ductal dilatation is present. The pancreas is unremarkable. The spleen is enlarged measuring 16 cm. but is otherwise unremarkable. There is no evidence of an adrenal mass. The kidneys show no evidence of obstruction. No solid renal mass is present. The urinary bladder and prostate gland appear grossly unremarkable however there is artifact from the patient's left total hip replacement. The abdominal aorta is of normal caliber. No significant abdominal or pelvic adenopathy, ascites or pneumoperitoneum is present. The patient has a gastrostomy tube. No evidence of bowel obstruction is present. There is mild bowel wall thickening seen in the colon with mild pericolonic inflammatory changes and a mild colitis cannot be excluded. Degenerative changes are seen in the spine. No suspicious osseous destructive changes are seen. IMPRESSION: 1. No evidence of abdominal or pelvic metastatic disease. 2. Mild bowel wall thickening in the colon and pericolonic inflammatory changes. The findings may represent a mild inflammatory or infectious colitis. 3. Gastrostomy tube in place. 4. Splenomegaly. CHEST: The thoracic aorta is of normal caliber. There is atherosclerosis present. Heart size is within normal limits. No significant pericardial effusion is seen. No significant mediastinal, hilar or axillary adenopathy is present. No pleural effusion or pneumothorax is identified. There are no pulmonary nodules present. The tracheobronchial tree is unremarkable. Mild dependent atelectatic changes are seen in the lungs. 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 There are sternal wires in place. No suspicious lytic or sclerotic lesions are seen in the bones. IMPRESSION: No evidence of thoracic metastatic disease. NECK: Since the prior examination, there has been significant decrease in size of the previously noted mass involving the left base of the tongue, tonsil and vallecula. There is very mild persistent soft tissue thickening seen in the region of the left base of the tongue. There has been interval decrease in size of the enlarged left lymph node at the level of the angle of the mandible. Currently this lymph node measures 1 by 0.8 cm. This compares with 3.1 by 1.6 cm. on the prior examination. No new cervical adenopathy is appreciated. The parotid and submandibular glands are unremarkable. The remainder of the oropharynx, nasopharynx, hypopharynx and larynx are unremarkable. IMPRESSION: 1. Significant decrease in size of the mass previously seen at the left base of the tongue, tonsil and vallecula with minimal soft tissue thickening seen in the level of the base of the tongue. 2. Significant decrease in size of the enlarged level II left lymph node, currently measuring 1 by 0.8 cm. compared with 3.1 by 1.6 cm.
== END 2018-10-14 01:46 ==
PROVIDERS: Preventive Medicine Undersea and Hyperbaric Medicine; PCP Family Medicine; Visit Provider Nurse Practitioner Adult Health
DX: C09.9 Malignant neoplasm of tonsil, unspecified (principal); Z12.89 Encounter for screening for malignant neoplasm of other sites; K63.89 Other specified diseases of intestine; R16.1 Splenomegaly, not elsewhere classified; Z93.1 Gastrostomy status; R59.0 Localized enlarged lymph nodes
CPT/HCPCS: 36415; 70491; 74177; 71260; 82565; J3490

== ENCOUNTER 2018-10-14 23:04 | Outpatient (REF) | payer MEDICARE, OTHER, SELFPAY | END 2018-10-14 23:24 | LOC: LBN 23:04 | PROVIDERS: PCP Family Medicine; Visit Provider Family Medicine | DX: A04.72 Enterocolitis due to Clostridium difficile, not specified as recurrent (principal) | CPT/HCPCS: 87324 ==

== ENCOUNTER 2018-10-18 10:08 | Outpatient (CLI) | payer MEDICARE, OTHER, SELFPAY ==
[2018-10-18 11:13] LABS: Abs Immature Grans 0.02 k/cumm (0.0-0.09); Absolute Basophil Count 0.01 k/cumm (0.0-0.2); Absolute Eosinophil Count 0.12 k/cumm (0.0-0.7); Absolute Lymphocyte Count 0.82 k/cumm (1.2-3.4); Absolute Monocyte Count 0.29 k/cumm (0.11-0.7); Absolute Neutrophil Count 3.53 k/cumm (1.2-6.7); Basophils % 0.2; Eosinophils % 2.5; HCT 27.9 % (40.0-50.0); HGB 8.8 g/dL (13.5-17.5); Immature Grans % 0.4; Lymphocytes % 17.1; Mean Corp. HGB Concentration 31.5 g/dL (32.0-36.0); Mean Corpuscular Volume 95.2 fL (80-95); Mean Platelet Volume 9.6 fL (8.0-11.0); Monocytes % 6.1; Neutrophils % 73.7; Platelet Count 150 x1000/uL (130-400); RBC 2.93 m/cumm (4.50-6.00); RBC Distribution Width 17.6 % (11.8-14.1); White Blood Cell Count 4.79 k/cumm (4.4-10.8)
[2018-10-18 11:44] LABS: Anisocytosis 1+; Basophilic Stippling Present; Diff Comment RBC Morph Reviewed
[2018-10-18 11:51] LABS: Anion Gap 9.9 mmol/L (3-11); BUN 18 mg/dL (7-18); CO2 26.1 mmol/L (21.0-32.0); CREATININE 1.26 mg/dL (0.70-1.30); Calcium 8.5 mg/dL (8.5-10.1); Chloride 104 mmol/L (98-107); Estimated GFR 56.26 (mL/min/1.73m2); Glucose 183 mg/dL (70-100); Potassium 4.5 mmol/L (3.5-5.1); Sodium 140 mmol/L (136-145)
== END 2018-10-18 10:28 ==
PROVIDERS: PCP Family Medicine; Visit Provider Nurse Practitioner Adult Health
DX: D64.9 Anemia, unspecified (principal)
CPT/HCPCS: 36415; 80048; 85025

== ENCOUNTER 2018-10-21 02:43 | Outpatient (CLI) | payer MEDICARE, OTHER, SELFPAY ==
[2018-10-21 14:18] LABS: Abs Immature Grans 0.04 k/cumm (0.0-0.09); Absolute Basophil Count 0.02 k/cumm (0.0-0.2); Absolute Eosinophil Count 0.16 k/cumm (0.0-0.7); Absolute Lymphocyte Count 1.37 k/cumm (1.2-3.4); Absolute Monocyte Count 0.45 k/cumm (0.11-0.7); Absolute Neutrophil Count 4.03 k/cumm (1.2-6.7); Basophils % 0.3; Eosinophils % 2.6; HCT 29.4 % (40.0-50.0); HGB 9.6 g/dL (13.5-17.5); Immature Grans % 0.7; Lymphocytes % 22.6; Mean Corp. HGB Concentration 32.7 g/dL (32.0-36.0); Mean Corpuscular Hemoglobin 30.9 pg (27.0-33.0); Mean Corpuscular Volume 94.5 fL (80-95); Mean Platelet Volume 8.8 fL (8.0-11.0); Monocytes % 7.4; Neutrophils % 66.4; Platelet Count 179 x1000/uL (130-400); RBC 3.11 m/cumm (4.50-6.00); RBC Distribution Width 17.4 % (11.8-14.1); White Blood Cell Count 6.07 k/cumm (4.4-10.8)
[2018-10-21 15:01] LABS: ALT 19 U/L (12-78); AST 20 U/L (15-37); Albumin 3.2 g/dL (3.4-5.0); Alkaline Phosphatase 90 U/L (46-116); Anion Gap 6.7 mmol/L (3-11); BUN 20 mg/dL (7-18); Bilirubin, Total 0.5 mg/dL (0.2-1.0); CO2 28.3 mmol/L (21.0-32.0); CREATININE 1.32 mg/dL (0.70-1.30); Calcium 9.3 mg/dL (8.5-10.1); Chloride 103 mmol/L (98-107); Estimated GFR 53.32 (mL/min/1.73m2); Glucose 82 mg/dL (70-100); Potassium 4.3 mmol/L (3.5-5.1); Sodium 138 mmol/L (136-145); TSH 4.68 uIU/mL (0.358-3.74); Total Protein 7.9 g/dL (6.4-8.2)
== END 2018-10-21 03:03 ==
PROVIDERS: PCP Family Medicine; Visit Provider Nurse Practitioner Adult Health
DX: C09.9 Malignant neoplasm of tonsil, unspecified (principal); E03.9 Hypothyroidism, unspecified
CPT/HCPCS: 36415; 80053; 84443; 85025

== ENCOUNTER 2019-09-27 01:27 | Outpatient (CLI) | payer MEDICARE, OTHER, SELFPAY ==
[2019-09-27 11:24] LABS: CREATININE 1.93 mg/dL (0.70-1.30); TSH 2.47 uIU/mL (0.36-3.74)
[2019-09-27] MEDS: Normal Saline - Diluent 50 ML VIAL IV (13:52)
[2019-09-27] MEDS: Omnipaque 350 MG/ML 100 ML BTL IJ (13:53)
--- NOTE | 2019-09-27 13:56 | DI.CT_ITS ---
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 COMPARISON: CT CT neck chest abd pel w from 10/14/2018 FINDINGS: Current examination is compared with prior study of October 14, 2018, the previous examination showed si gnificant decrease in size of a previously noted mass of the base of the tongue on the left extending to the tonsils and vallecula. Prior examination also showed significant interval decrease in size o f an enlarged level 2 lymph node on the left, which measured 10 x 8 millimeters on the October 14, 2018 study. On today's examination, mass of the base of the tongue/upper larynx is no longer visible. No enlarge d lymph nodes identified, the previously described enlarged level 2 lymph node measures less than 5 m illimeters in diameter. No new mass identified in the neck. Visualized intracranial and orbital str uctures are unremarkable. Visualized lung apices are clear. No superior mediastinal abnormality seen. IMPRESSION: No visible persistent or recurrent disease at this time. Unremarkable CT examination of the cervical region.
== END 2019-09-27 01:47 ==
PROVIDERS: PCP Family Medicine; Visit Provider Preventive Medicine Undersea and Hyperbaric Medicine
DX: C01 Malignant neoplasm of base of tongue (principal); Z92.21 Personal history of antineoplastic chemotherapy; R59.0 Localized enlarged lymph nodes; E03.8 Other specified hypothyroidism
CPT/HCPCS: 36415; 70491; 82565; 84443; J3490

== ENCOUNTER 2020-07-03 02:08 | Outpatient (CLI) | payer MEDICARE, OTHER, SELFPAY ==
[2020-07-03 10:05] LABS: CREATININE 1.9 mg/dL (0.70-1.30); Estimated GFR 34.83 (mL/min/1.73m2)
--- NOTE | 2020-07-03 11:02 | DI.CT_ITS ---
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 TECHNIQUE: Imaging Protocol: Axial CT angiography was performed with multi-slice acquisition and mu lti-planar and/or 3D reconstructions. CONTRAST MATERIAL: Intravenous: Omnipaque 350 Contrast volume:70cc COMPARISON: CT CT NECK W from 09/27/2019 FINDINGS: There is now a small fluid level in left maxillary sinus, not previously present. Right maxillary si nus is clear. No fluid in the sphenoid sinuses. Visualized ethmoidal air cells are clear. The tissues of the nasopharynx are symmetrical. However, there is now asymmetry on the right side of the oral pharynx which was not evident on the pr ior study of 09/27/2019 may indicated mass despite absence ring enhancement in this region. There is thickening of the epiglottis again noted which most probably post radiation. The airway below this level level is closed which is probably due to respiration phase during image acquisition.. This yin es evaluation of the vocal cords difficult. Subglottic airway appears unremarkable as does the thyro id gland. Salivary glands: Parotid glands are fatty, but without evidence of significant masses therein. The s ubmandibular glands are also fatty.. No calculi therein nor within their respective ducts. Lymph nodes: There is no prominent lymphadenopathy on either side of the neck nor in the supraclavicu lar regions.. Sternotomy wires are noted. IMPRESSION: 1. Fullness in the right oropharynx. Although there is no obvious enhancing mass at this level, this fullness is somewhat concerning and direct visualization-endoscopy possible biopsy recommended. 2. No obvious adenopathy in the neck. Incidentally noted is small fluid level in the left maxillary sinus. RADIATION DOSE DELIVERED: 475.55mGy.cm Total DLP DATA REPOSITORY: All CT scans at this facility are submitted to the National Radiology Data Registry (NRDR) Dose Index Registry (DIR) with the [employer] ([employer]). RADIATION OPTIMIZATION: All CT scans at this facility use at least one of these dose optimization te chniques: automated exposure control; mA and/or kV adjustment per patient size (includes targeted exa ms where dose is matched to clinical indication); or iterative reconstruction.
[2020-07-03] MEDS: Normal Saline - Diluent 50 ML VIAL IV (11:10)
[2020-07-03] MEDS: Omnipaque 350 MG/ML 100 ML BTL 70 ML IJ (11:11)
[2020-07-03] MEDS: Normal Saline Flush 10 ML SYR IVP (11:14)
== END 2020-07-03 02:28 ==
PROVIDERS: PCP Family Medicine; Visit Provider Preventive Medicine Undersea and Hyperbaric Medicine
DX: C01 Malignant neoplasm of base of tongue (principal); J39.2 Other diseases of pharynx; J38.7 Other diseases of larynx
CPT/HCPCS: 70491; 82565; J3490

== ENCOUNTER 2020-10-31 14:31 | Outpatient (CLI) | payer MEDICARE, OTHER, SELFPAY ==
[2020-10-31 09:22] LABS: Abs Immature Grans 0.02 10^3/uL (0.0-0.06); Absolute Basophil Count 0.02 10^3/uL (0.0-0.2); Absolute Eosinophil Count 0.07 10^3/uL (0.0-0.7); Absolute Lymphocyte Count 1.01 10^3/uL (1.2-3.4); Absolute Monocyte Count 0.59 10^3/uL (0.1-0.8); Absolute Neutrophil Count 2.56 10^3/uL (1.2-6.7); Basophils % 0.5; Eosinophils % 1.6; HCT 30.4 % (40.0-50.0); HGB 10.2 g/dL (13.5-17.5); Immature Grans % 0.5; Lymphocytes % 23.7; MCH 33.6 pg (27.0-33.0); MCHC 33.6 % (32.0-36.0); MPV 9.7 fL (8.0-11.0); Monocytes % 13.8; Neutrophils % 59.9; Nucleated RBC 0 %; Platelet Count 109 10^3/uL (130-400); RBC 3.04 10^6/uL (4.36-5.78); RDW 14.2 % (11.8-14.1); RDW-SD 51.6 fL; Reticulocyte 2.6 % (0.5-2.4); WBC 4.27 10^3/uL (4.4-10.8)
[2020-10-31 10:04] LABS: ALT 33 U/L (16-63); AST 30 U/L (15-37); Alkaline Phosphatase 99 U/L (46-116); BUN 26 mg/dL (7-18); Bilirubin, Total 0.4 mg/dL (0.2-1.0); CREATININE 1.8 mg/dL (0.70-1.30); Calcium 8.9 mg/dL (8.5-10.1); Chloride 107 mmol/L (98-107); Estimated GFR 37.07 (mL/min/1.73m2); Ferritin 238 ng/mL (26-388); Glucose 106 mg/dL (74-106); Potassium 4.3 mmol/L (3.5-5.1); Sodium 143 mmol/L (136-145); Total Protein 8.2 g/dL (6.4-8.2); Vitamin B12 1203 pg/mL (193-986)
[2020-10-31 10:13] LABS: Folate > 20.0 ng/mL (8.6-20.0)
[2020-11-01 09:18] LABS: IgA 231 mg/dL (85-499); IgG 963 mg/dL (610-1,616); IgM 1156 mg/dL (35-242); Kappa Free Light Chain 2.45 mg/dL (0.33-1.94); Lambda Free Light Chain 49.72 mg/dL (0.57-2.63)
[2020-11-01 15:13] LABS: Albumin 58.1 % (55.8-66.1); Comment (See Note); Monoclonal Spike 11.1 % (None Seen); Total Protein 8.1 g/dL (6.3-8.2)
[2020-11-02 11:43] LABS: Erythropoietin 18.4 mIU/mL (2.6 - 18.5)
[2020-12-10 10:33] LABS: Immunotyping, Serum (See Note)
== END 2020-10-31 14:32 | disposition home or self-care (01) ==
LOC: LBO 14:33
PROVIDERS: PCP Family Medicine; Visit Provider Internal Medicine Hematology & Oncology
DX: D61.818 Other pancytopenia (principal); D47.2 Monoclonal gammopathy; D63.1 Anemia in chronic kidney disease; N18.9 Chronic kidney disease, unspecified
CPT/HCPCS: 36415; 80053; 82668; 82784; 82607; 82728; 82746; 83883; 84165; 85025; 85045; 86320

== ENCOUNTER 2021-06-26 03:33 | Outpatient (CLI) | payer MEDICARE, OTHER, SELFPAY ==
[2021-06-26 10:13] LABS: Abs Immature Grans 0.03 10^3/uL (0.0-0.06); Absolute Basophil Count 0.02 10^3/uL (0.0-0.2); Absolute Eosinophil Count 0.07 10^3/uL (0.0-0.7); Absolute Lymphocyte Count 1.15 10^3/uL (1.2-3.4); Absolute Monocyte Count 0.62 10^3/uL (0.1-0.8); Absolute Neutrophil Count 1.94 10^3/uL (1.2-6.7); Basophils % 0.5; Eosinophils % 1.8; HCT 32.2 % (40.0-50.0); HGB 10.5 g/dL (13.5-17.5); Immature Grans % 0.8; MCH 33.1 pg (27.0-33.0); MCHC 32.6 % (32.0-36.0); MCV 101.6 fL (80-95); MPV 9.9 fL (8.0-11.0); Monocytes % 16.2; Neutrophils % 50.7; Nucleated RBC 0 %; Platelet Count 115 10^3/uL (130-400); RBC 3.17 10^6/uL (4.36-5.78); RDW 15.4 % (11.8-14.1); RDW-SD 56.4 fL; WBC 3.83 10^3/uL (4.4-10.8)
[2021-06-26 10:31] LABS: ALT 32 U/L (16-63); AST 29 U/L (15-37); Albumin 4.1 g/dL (3.4-5.0); Alkaline Phosphatase 116 U/L (46-116); Anion Gap 10.1 mmol/L (3-11); BUN 26 mg/dL (7-18); Bilirubin, Total 0.6 mg/dL (0.2-1.0); CO2 23.9 mmol/L (21.0-32.0); CREATININE 1.9 mg/dL (0.70-1.30); Calcium 8.9 mg/dL (8.5-10.1); Chloride 107 mmol/L (98-107); Estimated GFR 34.73 (mL/min/1.73m2); Glucose 107 mg/dL (74-106); Potassium 3.9 mmol/L (3.5-5.1); Sodium 141 mmol/L (136-145); Total Protein 8.1 g/dL (6.4-8.2)
[2021-06-27 09:40] LABS: IgA 197 mg/dL (85-499); IgG 802 mg/dL (610-1,616); IgM 1224 mg/dL (35-242); Kappa Free Light Chain 2.46 mg/dL (0.33-1.94); Lambda Free Light Chain 57.73 mg/dL (0.57-2.63)
[2021-06-30 13:19] LABS: Albumin 59.6 % (55.8-66.1); Comment (See Note); Total Protein 8.1 g/dL (6.3-8.2)
== END 2021-06-26 03:34 | disposition home or self-care (01) ==
LOC: LBO 03:33
PROVIDERS: PCP Family Medicine; Visit Provider Internal Medicine Hematology & Oncology
DX: D47.2 Monoclonal gammopathy (principal)
CPT/HCPCS: 80053; 82784; 83883; 84165; 85025

== ENCOUNTER 2021-09-24 02:10 | Outpatient (CLI) | payer MEDICARE, OTHER, SELFPAY | END 2021-09-24 02:11 | disposition home or self-care (01) | LOC: LBO 02:10 | PROVIDERS: PCP Family Medicine; Visit Provider Preventive Medicine Undersea and Hyperbaric Medicine ==

== ENCOUNTER 2021-09-24 02:16 | Outpatient (CLI) | payer MEDICARE, OTHER, SELFPAY ==
[2021-09-24 14:20] LABS: TSH 2.98 uIU/mL (0.36-3.74)
== END 2021-09-24 02:17 | disposition home or self-care (01) ==
PROVIDERS: PCP Family Medicine; Visit Provider Preventive Medicine Undersea and Hyperbaric Medicine
DX: E03.8 Other specified hypothyroidism (principal)
CPT/HCPCS: 36415; 84443

== ENCOUNTER 2021-12-24 02:55 | Outpatient (CLI) | payer MEDICARE, OTHER, SELFPAY ==
[2021-12-24 10:02] LABS: Abs Immature Grans 0.01 10^3/uL (0.0-0.06); Absolute Basophil Count 0.02 10^3/uL (0.0-0.2); Absolute Eosinophil Count 0.06 10^3/uL (0.0-0.7); Absolute Neutrophil Count 3.07 10^3/uL (1.2-6.7); Basophils % 0.4; Eosinophils % 1.2; HCT 33.6 % (40.0-50.0); HGB 11.2 g/dL (13.5-17.5); Immature Grans % 0.2; Lymphocytes % 23.3; MCH 33.1 pg (27.0-33.0); MCHC 33.3 % (32.0-36.0); MCV 99 fL (80-95); MPV 9.9 fL (8.0-11.0); Monocytes % 15.5; Neutrophils % 59.4; Platelet Count 127 10^3/uL (130-400); RBC 3.38 10^6/uL (4.36-5.78); RDW 14.6 % (11.8-14.1); WBC 5.16 10^3/uL (4.4-10.8)
[2021-12-24 11:22] LABS: ALT 34 U/L (16-63); AST 28 U/L (15-37); Albumin 3.7 g/dL (3.4-5.0); Alkaline Phosphatase 127 U/L (46-116); Anion Gap 10.6 mmol/L (3-11); BUN 24 mg/dL (7-18); Bilirubin, Total 0.5 mg/dL (0.2-1.0); CO2 25.4 mmol/L (21.0-32.0); CREATININE 1.8 mg/dL (0.70-1.30); Calcium 8.7 mg/dL (8.5-10.1); Chloride 106 mmol/L (98-107); Estimated GFR 38.53 (mL/min/1.73m2); Glucose 98 mg/dL (74-106); Potassium 3.7 mmol/L (3.5-5.1); Sodium 142 mmol/L (136-145); Total Protein 8.2 g/dL (6.4-8.2)
[2021-12-25 10:02] LABS: IgA 182 mg/dL (85-499); IgG 729 mg/dL (610-1,616); IgM 1587 mg/dL (35-242); Kappa Free Light Chain 2.18 mg/dL (0.33-1.94); Lambda Free Light Chain 65.75 mg/dL (0.57-2.63)
[2021-12-25 14:08] LABS: Albumin 57.1 % (55.8-66.1); Albumin g/dL 4.7 g/dL (3.6-5.2); Comment (See Note); Monoclonal Spike 13.5 % (None Seen); Monoclonal Spike g/dL 1.1 g/dL (None Seen); Total Protein 8.2 g/dL (6.3-8.2)
== END 2021-12-24 02:56 | disposition home or self-care (01) ==
LOC: LBO 02:55
PROVIDERS: PCP Family Medicine; Visit Provider Nurse Practitioner Family
DX: D47.9 Neoplasm of uncertain behavior of lymphoid, hematopoietic and related tissue, unspecified (principal)
CPT/HCPCS: 36415; 80053; 82784; 83883; 84165; 85025

== ENCOUNTER 2022-05-15 02:04 | Outpatient (CLI) | payer MEDICARE, SELFPAY ==
[2022-05-15 10:11] LABS: Abs Immature Grans 0.03 10^3/uL (0.0-0.06); Absolute Basophil Count 0.02 10^3/uL (0.0-0.2); Absolute Eosinophil Count 0.04 10^3/uL (0.0-0.7); Absolute Lymphocyte Count 1.14 10^3/uL (1.2-3.4); Absolute Monocyte Count 0.73 10^3/uL (0.1-0.8); Absolute Neutrophil Count 2.72 10^3/uL (1.2-6.7); Basophils % 0.4; Eosinophils % 0.9; HCT 37.2 % (40.0-50.0); HGB 12.3 g/dL (13.5-17.5); Immature Grans % 0.6; Lymphocytes % 24.4; MCH 32.9 pg (27.0-33.0); MCHC 33.1 % (32.0-36.0); MCV 100 fL (80-95); MPV 9.8 fL (8.0-11.0); Monocytes % 15.6; Neutrophils % 58.1; Platelet Count 150 10^3/uL (130-400); RBC 3.74 10^6/uL (4.36-5.78); RDW 14.6 % (11.8-14.1); RDW-SD 53.5 fL; WBC 4.68 10^3/uL (4.4-10.8)
[2022-05-15 10:21] LABS: ALT 30 U/L (16-63); AST 31 U/L (15-37); Albumin 4.1 g/dL (3.4-5.0); Alkaline Phosphatase 112 U/L (46-116); Anion Gap 10.8 mmol/L (3-11); BUN 26 mg/dL (7-18); Bilirubin, Total 0.7 mg/dL (0.2-1.0); CO2 24.2 mmol/L (21.0-32.0); CREATININE 1.7 mg/dL (0.70-1.30); Calcium 9.7 mg/dL (8.5-10.1); Chloride 104 mmol/L (98-107); Estimated GFR 41.26 (mL/min/1.73m2); Glucose 96 mg/dL (74-106); Potassium 3.9 mmol/L (3.5-5.1); Sodium 139 mmol/L (136-145); Total Protein 8.9 g/dL (6.4-8.2)
[2022-05-18 10:09] LABS: IgA 228 mg/dL (85-499); IgG 956 mg/dL (610-1616); IgM 2060 mg/dL (35-242); Kappa Free Light Chain 2.81 mg/dL (0.33-1.94); Lambda Free Light Chain 74.36 mg/dL (0.57-2.63)
[2022-05-18 12:46] LABS: Albumin 53.9 % (55.8-66.1); Albumin g/dL 4.7 g/dL (3.6-5.2); Comment (See Note); Monoclonal Spike 14.8 % (None Seen); Monoclonal Spike g/dL 1.3 g/dL (None Seen); Total Protein 8.8 g/dL (6.3-8.2)
== END 2022-05-15 02:05 | disposition home or self-care (01) ==
LOC: LBO 02:04
PROVIDERS: PCP Family Medicine; Visit Provider Nurse Practitioner Family
DX: D47.9 Neoplasm of uncertain behavior of lymphoid, hematopoietic and related tissue, unspecified (principal)
CPT/HCPCS: 36415; 80053; 82784; 83883; 84165; 85025

== ENCOUNTER 2022-06-15 03:11 | Outpatient (CLI) | payer MEDICARE, SELFPAY ==
[2022-06-15 09:40] LABS: Abs Immature Grans 0.02 10^3/uL (0.0-0.06); Absolute Basophil Count 0.02 10^3/uL (0.0-0.2); Absolute Eosinophil Count 0.05 10^3/uL (0.0-0.7); Absolute Lymphocyte Count 1.12 10^3/uL (1.2-3.4); Absolute Monocyte Count 0.98 10^3/uL (0.1-0.8); Absolute Neutrophil Count 3.45 10^3/uL (1.2-6.7); Basophils % 0.4; Eosinophils % 0.9; HCT 35.1 % (40.0-50.0); HGB 11.8 g/dL (13.5-17.5); Immature Grans % 0.4; Lymphocytes % 19.9; MCH 33.1 pg (27.0-33.0); MCHC 33.6 % (32.0-36.0); MCV 98 fL (80-95); MPV 9.9 fL (8.0-11.0); Monocytes % 17.4; Platelet Count 138 10^3/uL (130-400); RBC 3.57 10^6/uL (4.36-5.78); RDW 15.4 % (11.8-14.1); RDW-SD 55.2 fL; WBC 5.64 10^3/uL (4.4-10.8)
[2022-06-15 10:00] LABS: AST 44 U/L (15-37); Albumin 3.8 g/dL (3.4-5.0); Alkaline Phosphatase 110 U/L (46-116); Anion Gap 12.4 mmol/L (3-11); BUN 25 mg/dL (7-18); Bilirubin, Total 0.6 mg/dL (0.2-1.0); CO2 22.6 mmol/L (21.0-32.0); CREATININE 1.7 mg/dL (0.70-1.30); Calcium 9.2 mg/dL (8.5-10.1); Chloride 106 mmol/L (98-107); Estimated GFR 41.26 (mL/min/1.73m2); Glucose 102 mg/dL (74-106); Potassium 3.9 mmol/L (3.5-5.1); Sodium 141 mmol/L (136-145); Total Protein 8.8 g/dL (6.4-8.2)
[2022-06-15 11:05] LABS: ALT 41 U/L (16-63)
[2022-06-16 12:18] LABS: IgA 226 mg/dL (85-499); IgG 992 mg/dL (610-1616); IgM 2077 mg/dL (35-242); Kappa Free Light Chain 3.05 mg/dL (0.33-1.94); Lambda Free Light Chain 81.85 mg/dL (0.57-2.63)
[2022-06-16 12:56] LABS: Albumin 53.6 % (55.8-66.1); Albumin g/dL 4.8 g/dL (3.6-5.2); Comment (See Note); Monoclonal Spike 14.5 % (None Seen); Monoclonal Spike g/dL 1.3 g/dL (None Seen); Total Protein 8.9 g/dL (6.3-8.2)
== END 2022-06-15 03:12 | disposition home or self-care (01) ==
LOC: LBO 03:11
PROVIDERS: PCP Family Medicine; Visit Provider Nurse Practitioner Family
DX: D47.9 Neoplasm of uncertain behavior of lymphoid, hematopoietic and related tissue, unspecified (principal)
CPT/HCPCS: 36415; 80053; 82784; 83883; 84165; 85025

== ENCOUNTER 2022-11-19 05:22 | Outpatient (CLI) | payer MEDICARE, SELFPAY ==
[2022-11-19 08:31] LABS: Abs Immature Grans 0.02 10^3/uL (0.0-0.06); Absolute Basophil Count 0.02 10^3/uL (0.0-0.2); Absolute Eosinophil Count 0.06 10^3/uL (0.0-0.7); Absolute Lymphocyte Count 0.94 10^3/uL (1.2-3.4); Absolute Monocyte Count 0.73 10^3/uL (0.1-0.8); Absolute Neutrophil Count 2.65 10^3/uL (1.2-6.7); Basophils % 0.5; Eosinophils % 1.4; HCT 36.6 % (40.0-50.0); HGB 12.2 g/dL (13.5-17.5); Immature Grans % 0.5; Lymphocytes % 21.3; MCH 32.5 pg (27.0-33.0); MCHC 33.3 % (32.0-36.0); MCV 98 fL (80-95); MPV 9.8 fL (8.0-11.0); Monocytes % 16.5; Neutrophils % 59.8; Platelet Count 145 10^3/uL (130-400); RBC 3.75 10^6/uL (4.36-5.78); RDW-SD 53.6 fL; WBC 4.42 10^3/uL (4.4-10.8)
[2022-11-19 08:47] LABS: ALT 29 U/L (16-63); AST 30 U/L (15-37); Albumin 3.5 g/dL (3.4-5.0); Alkaline Phosphatase 119 U/L (46-116); Anion Gap 10.9 mmol/L (3-11); BUN 20 mg/dL (7-18); Bilirubin, Total 0.6 mg/dL (0.2-1.0); CO2 24.1 mmol/L (21.0-32.0); Calcium 9.8 mg/dL (8.5-10.1); Chloride 107 mmol/L (98-107); Estimated GFR 33.74 (mL/min/1.73m2); Glucose 137 mg/dL (74-106); Potassium 4.1 mmol/L (3.5-5.1); Sodium 142 mmol/L (136-145); Total Protein 8.5 g/dL (6.4-8.2)
[2022-11-20 08:49] LABS: IgA 201 mg/dL (85-499); IgG 820 mg/dL (610-1616); IgM 2545 mg/dL (35-242); Kappa Free Light Chain 2.99 mg/dL (0.33-1.94); Lambda Free Light Chain 96.45 mg/dL (0.57-2.63)
[2022-11-20 12:17] LABS: Albumin 49.9 % (55.8-66.1); Albumin g/dL 4.4 g/dL (3.6-5.2); Comment (See Note); Monoclonal Spike 18.6 % (None Seen); Monoclonal Spike g/dL 1.6 g/dL (None Seen); Total Protein 8.8 g/dL (6.3-8.2)
== END 2022-11-19 05:23 | disposition home or self-care (01) ==
LOC: LBO 05:22
PROVIDERS: PCP Family Medicine; Visit Provider Internal Medicine Hematology & Oncology
DX: D47.9 Neoplasm of uncertain behavior of lymphoid, hematopoietic and related tissue, unspecified (principal)
CPT/HCPCS: 36415; 80053; 82784; 83883; 84165; 85025

== ENCOUNTER 2023-05-25 05:01 | Outpatient (CLI) | payer MEDICARE, SELFPAY ==
[2023-05-25 09:34] LABS: Abs Immature Grans 0.01 10^3/uL (0.0-0.06); Absolute Basophil Count 0.02 10^3/uL (0.0-0.2); Absolute Eosinophil Count 0.06 10^3/uL (0.0-0.7); Absolute Lymphocyte Count 1.09 10^3/uL (1.2-3.4); Absolute Monocyte Count 0.91 10^3/uL (0.1-0.8); Basophils % 0.4; Eosinophils % 1.1; HCT 34.7 % (40.0-50.0); HGB 11.4 g/dL (13.5-17.5); Immature Grans % 0.2; Lymphocytes % 20.6; MCH 31.6 pg (27.0-33.0); MCHC 32.9 % (32.0-36.0); MCV 96 fL (80-95); Monocytes % 17.2; Neutrophils % 60.5; Platelet Count 155 10^3/uL (130-400); RBC 3.61 10^6/uL (4.36-5.78); RDW 15.1 % (11.8-14.1); RDW-SD 53.5 fL; WBC 5.29 10^3/uL (4.4-10.8)
[2023-05-25 10:14] LABS: ALT 28 U/L (16-63); AST 30 U/L (15-37); Albumin 3.4 g/dL (3.4-5.0); Alkaline Phosphatase 140 U/L (46-116); Anion Gap 9.2 mmol/L (3-11); BUN 26 mg/dL (7-18); Bilirubin, Total 0.7 mg/dL (0.2-1.0); CO2 25.8 mmol/L (21.0-32.0); CREATININE 1.8 mg/dL (0.70-1.30); Calcium 9.9 mg/dL (8.5-10.1); Chloride 104 mmol/L (98-107); Estimated GFR 38.29 (mL/min/1.73m2); Glucose 109 mg/dL (74-106); Potassium 4.1 mmol/L (3.5-5.1); Sodium 139 mmol/L (136-145); Total Protein 9.2 g/dL (6.4-8.2)
[2023-05-26 09:51] LABS: IgA 209 mg/dL (85-499); IgG 824 mg/dL (610-1616); IgM 2815 mg/dL (35-242); Kappa Free Light Chain 3.11 mg/dL (0.33-1.94); Lambda Free Light Chain 97.38 mg/dL (0.57-2.63)
[2023-05-26 13:18] LABS: Albumin 46.4 % (55.8-66.1); Albumin g/dL 4.3 g/dL (3.6-5.2); Comment (See Note); Monoclonal Spike 22.3 % (None Seen); Monoclonal Spike g/dL 2.1 g/dL (None Seen); Total Protein 9.3 g/dL (6.3-8.2)
== END 2023-05-25 05:02 | disposition home or self-care (01) ==
LOC: LBO 05:01
PROVIDERS: PCP Family Medicine; Visit Provider Internal Medicine Hematology & Oncology
DX: C83.00 Small cell B-cell lymphoma, unspecified site (principal)
CPT/HCPCS: 36415; 80053; 82784; 83883; 84165; 85025

== ENCOUNTER 2023-06-03 18:16 | Outpatient (CLI) | payer MEDICARE, SELFPAY ==
[2023-06-03 12:53] LABS: Ferritin 92 ng/mL (26-388); Vitamin B12 1229 pg/mL (193-986)
[2023-06-03 12:55] LABS: Folate > 20.0 ng/mL (8.6-20.0)
[2023-06-04 09:10] LABS: Haptoglobin 85 mg/dL (32-197)
[2023-06-07 15:15] LABS: Viscosity, S 1.7 cpoise (<=1.5)
== END 2023-06-03 18:17 | disposition home or self-care (01) ==
LOC: LBO 18:16
PROVIDERS: PCP Family Medicine; Visit Provider Nurse Practitioner Family
DX: D47.9 Neoplasm of uncertain behavior of lymphoid, hematopoietic and related tissue, unspecified (principal)
CPT/HCPCS: 36415; 82607; 82728; 82746; 83010; 85810

== ENCOUNTER 2023-09-16 01:06 | Outpatient (CLI) | payer MEDICARE, SELFPAY ==
[2023-09-16 12:46] LABS: Ferritin 99 ng/mL (26-388); Vitamin B12 1584 pg/mL (193-986)
[2023-09-16 12:47] LABS: Folate > 20.0 ng/mL (8.6-20.0)
[2023-09-17 08:10] LABS: Haptoglobin 66 mg/dL (32-197)
[2023-09-20 15:10] LABS: Viscosity, S 2.1 cpoise (<=1.5)
== END 2023-09-16 01:07 | disposition home or self-care (01) ==
LOC: LBO 01:07
PROVIDERS: PCP Family Medicine; Visit Provider Nurse Practitioner Family
DX: D47.9 Neoplasm of uncertain behavior of lymphoid, hematopoietic and related tissue, unspecified (principal)
CPT/HCPCS: 36415; 82607; 82728; 82746; 83010; 85810